=== PATIENT | male | born 1995 | race Caucasian/White ===

== ENCOUNTER 2018-03-10 16:08 | Emergency (ER) | payer BC, OTHER ==
[2018-03-10] MEDS ORDERED: PROPARACAINE 0.5% OPHTH DROPS 15 ML BTL LEFT EYE STA (17:08)
--- NOTE | 2018-03-10 18:16 | ED ---
Eye Problem HPI - General Chief complaint: Eye Problems Stated complaint: FB eye Time Seen by Provider: 03/10/18 17:04 Source: patient, RN notes reviewed Mode of arrival: ambulatory Limitations: no limitations - History of Present Illness Initial comments: This is a 22-year-old male with no past medical history who presents today for chief complaint of there is something in my left eye times one day. Patient states that yesterday afternoon he was using a metal riveting machine operator while working on his car, he had left his safety glasses inside of the car did not use them. Patient states he felt something go into his left eye. He tried to rinse out the object. He noticed pain in the right eye but continue to use the metal riveting machine operator. Today when he continued to have left eye redness and pain he decided to present to the emergency department. Patient admits to photophobia, lacrimation, injection and pain of the left eye. Patient denies symptoms in the right eye. Patient denies headache, nausea, vomiting, eye drainage, recent fever, chills, recent STD, surrounding erythema of the left eye, diplopia, visual changes, shortness of breath, chest pain, back pain, abdominal pain, nausea or vomiting, numbness or tingling, dysuria or hematuria, constipation or diarrhea, or any other complaints. Tetanus up-to-date within the last 5 years. Upon presentation emergency Department patient was 20/20 in the right eye and 20 /15 in the left eye. IOP's 10 bilaterally. - Related Data Previous Rx's Medication Instructions Recorded Tobra-Dexamet 0.3-0.1% Eye Lynda 1 drops LEFT EYE Q4H 3 Days #1 03/10/18 [Tobradex Ophth Susp] bottle traMADol HCl [Ultram] 50 mg PO Q6HR PRN 3 Days #12 tab 03/10/18 Allergies Allergy/AdvReac Type Severity Reaction Status Date / Time No Known Allergies Allergy Verified 03/10/18 17:08 Review of Systems ROS Statement: Those systems with pertinent positive or pertinent negative responses have been documented in the HPI. ROS Other: All systems not noted in ROS Statement are negative. Constitutional: Denies: fever, chills Eyes: Reports: as per HPI, eye pain, other (photophobia). Denies: eye discharge , vision change ENT: Denies: ear pain, throat pain Respiratory: Denies: cough, dyspnea Cardiovascular: Denies: chest pain, palpitations Endocrine: Denies: fatigue Gastrointestinal: Denies: abdominal pain, nausea, vomiting, diarrhea, constipation Genitourinary: Denies: urgency, dysuria, frequency Musculoskeletal: Denies: back pain Skin: Denies: rash, lesions Past Medical History Past Medical History: No Reported History History of Any Multi-Drug Resistant Organisms: None Reported Past Surgical History: No Surgical Hx Reported Past Psychological History: No Psychological Hx Reported Smoking Status: Current every day smoker Past Alcohol Use History: None Reported Past Drug Use History: None Reported General Exam - General Exam Comments Initial Comments: General: The patient is awake and alert, in no distress, and does not appear acutely ill. Eye: OD 20/20 OS 20/15 OU 20/15. Pupils are equal, round and reactive to light , no evidence of APD. Extra-ocular movements are intact without pain with movement. VF intact to confrontation in all 4 field b/l. No nystagmus. There is +1 injection of the conjunctiva of the left eye. Normal left conjunctiva. Claer corena and lens. No signs of icterus. There is visible FB to the 4oclock region of the left eye. Upon florescene examination there is uptake within the visible FB. No other areas of uptake. Examination of the upper lid externally and internaly reveals no FB. IOP 10 b/l. Ears, nose, mouth and throat: There are moist mucous membranes and no oral lesions. Neck: The neck is supple, there is no tenderness or JVD. Cardiovascular: There is a regular rate and rhythm. No murmur, rub or gallop is appreciated. Respiratory: Lungs are clear to auscultation, respirations are non-labored, breath sounds are equal. No wheezes, stridor, rales, or rhonchi.. Neurological: A&O x 3. CN II-XII intact, There are no obvious motor or sensory deficits. Coordination appears grossly intact. Speech is normal. Skin: Skin is warm and dry and no rashes or lesions are noted. Psychiatric: Cooperative, appropriate mood & affect, normal judgment. Limitations: no limitations Course Vital Signs 03/10/18 03/10/18 16:25 19:26 Temperature 98.6 F 98.1 F Pulse Rate 81 63 Respiratory 18 16 Rate Blood Pressure 124/57 132/67 O2 Sat by Pulse 100 100 Oximetry Medical Decision Making - Medical Decision Making This is a 22-year-old male with no past medical history who presents today for chief complaint of there is something in my left eye times one day. Patient states that yesterday afternoon he was using a metal riveting machine operator while working on his car, he had left his safety glasses inside of the car did not use them. Patient states he felt something go into his left eye. He tried to rinse out the object. He noticed pain in the right eye but continue to use the metal riveting machine operator. Today when he continued to have left eye redness and pain he decided to present to the emergency department. Patient admits to photophobia, lacrimation, injection and pain of the left eye. Patient denies symptoms in the right eye. Patient denies headache, nausea, vomiting, eye drainage, recent fever, chills, recent STD, surrounding erythema of the left eye, diplopia, visual changes, shortness of breath, chest pain, back pain, abdominal pain, nausea or vomiting, numbness or tingling, dysuria or hematuria, constipation or diarrhea, or any other complaints. Tetanus up-to-date within the last 5 years. Upon presentation emergency Department patient was 20/20 in the right eye and 20 /15 in the left eye. IOP's 10 bilaterally. 2 drops of proparacaine were administered to the left eye. Slit lamp examination using fluorescein revealed uptake at the 4:00 region of the left eye, there is an obvious rust ring. The foreign body is present upon examination with and without slit lamp. Attempt to remove the foreign body with an 18-gauge needle, was unsuccessful. Given the mechanism of the injury and possible for deeper penetration of the foreign body an x-ray PA and lateral of the orbits were obtained revealing no evidence of ocular FB. Rust ring was removed by Dr. Adams using Auger brush. There was minimal remaining rust. Pt to f/u with ophthalmology in 2-3 days. Pt d/c with tramadol rx for pain and needed as recommended by Dr. Adams and Tobrex drops for 3 days. Plan discussed with Dr. Adams and patient. Pt discharged in stable condition. Disposition Clinical Impression: Foreign body of left eye Disposition: HOME SELF-CARE Condition: Good Instructions: Eye Lubricant (Into the eye), Eye Foreign Body (ED) Additional Instructions: Please use medication as discussed. Please follow-up with eye doctor in the next 2-3 days. Please return to emergency room if the symptoms increase or worsen or for any other concerns. Prescriptions: Tobra-Dexamet 0.3-0.1% Eye Lynda [Tobradex Ophth Susp] 1 drops LEFT EYE Q4H 3 Days #1 bottle traMADol HCl [Ultram] 50 mg PO Q6HR PRN 3 Days #12 tab PRN Reason: Pain Is patient prescribed a controlled substance at d/c from ED?: Yes When asked, does pt state using other controlled substances?: No If prescribed controlled substance>3 days was MAPS reviewed?: Prescribed <3 Days If opioid is for acute pain is fill amount 7 days or less?: Yes If Rx opioid, was Start Talking consent form obtained?: Yes Referrals: Felipe Regalado MD [Primary Care Provider] - 1-2 days Dylon Tsai MD [STAFF PHYSICIAN] - 1-2 days Time of Disposition: 19:14
--- NOTE | 2018-03-10 18:57 | XR ---
PROCEDURE: XR orbit detect foreign body 3 views DATE AND TIME: 03/10/2018 6:17 PM REFERRING PHYSICIAN: Jolly Wadsworth CLINICAL INDICATION: PHH, Pain TECHNIQUE: Department protocol. COMPARISON: None FINDINGS: There is no fracture or malalignment. The soft tissues are unremarkable. IMPRESSION: NO ACUTE PROCESS.
[2018-03-10 19:27] VITALS: BP 132/67; PULSE 63; RESP 16; TEMP 98.1
== END 2018-03-10 19:25 | disposition home or self-care (01) ==
LOC: EC 16:08
DX: T15.02XA Foreign body in cornea, left eye, initial encounter (principal); F17.200 Nicotine dependence, unspecified, uncomplicated
CPT/HCPCS: 65222; 70030; 99283

== ENCOUNTER 2019-05-14 15:26 | Emergency (ER) | payer BC ==
[2019-05-14 15:32] VITALS: TEMP 98.2
[2019-05-14] MEDS ORDERED: ceFAZolin 1,000 MG VIAL (IM USE) IM STA (16:08)
[2019-05-14] MEDS ORDERED: ONDANSETRON 4 MG/2 ML VIAL IVP STA (16:09)
[2019-05-14] MEDS ORDERED: DIPH,PERTUS(ACELL)TETVAC-LF 0.5 ML VIAL IM ONE (16:09)
[2019-05-14] MEDS ORDERED: HYDROmorphone 1 MG/ML 1 ML SYRINGE IVP STA (16:09)
[2019-05-14 17:04] VITALS: BP 125/57
--- NOTE | 2019-05-14 17:07 | XR ---
EXAMINATION TYPE: XR foot complete RT DATE OF EXAM: 05/14/2019 COMPARISON: NONE HISTORY: Foot pain TECHNIQUE: 3 views FINDINGS: There are transverse fractures of the head of the third and fourth and fifth metatarsals. T here is no dislocation. There is mild soft tissue swelling of the forefoot. IMPRESSION: Multiple nondisplaced metatarsal head fractures.
--- NOTE | 2019-05-14 17:09 | XR ---
EXAMINATION TYPE: XR ankle complete RT DATE OF EXAM: 05/14/2019 COMPARISON: NONE HISTORY: Foot pain ankle pain TECHNIQUE: 3 views FINDINGS: Ankle mortise is anatomic. I see no fracture nor dislocation. Joint spaces are fairly sami l. IMPRESSION: Negative right ankle exam. Multiple metatarsal head fractures noted.
[2019-05-14] MEDS ORDERED: KETOROLAC 30 MG/ML 1 ML VIAL IVP STA (17:56)
[2019-05-14 17:58] VITALS: PULSE 68; RESP 18
[2019-05-14] MEDS ORDERED: LIDOCAINE 1% INJ 10MG/ML (20 ML MDV) SQ ONE (18:36)
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
== END 2019-05-14 19:42 | disposition home or self-care (01) ==
LOC: EC 15:26
DX: S92.334A Nondisplaced fracture of third metatarsal bone, right foot, initial encounter for closed fracture (principal); S92.344A Nondisplaced fracture of fourth metatarsal bone, right foot, initial encounter for closed fracture; S92.354A Nondisplaced fracture of fifth metatarsal bone, right foot, initial encounter for closed fracture; S91.011A Laceration without foreign body, right ankle, initial encounter; F17.200 Nicotine dependence, unspecified, uncomplicated; Z23 Encounter for immunization; V86.56XA Driver of dirt bike or motor/cross bike injured in nontraffic accident, initial encounter
CPT/HCPCS: 73610; 73630; 90715; 99284; 90471; 96374; 96375 ×2; 96372 ×2; J2405; J0690; J2001; J1885; J1170

== ENCOUNTER 2021-01-20 16:03 | Emergency (ER) | payer BC, OTHER ==
[2021-01-20 16:11] VITALS: BP 146/81; PULSE 116; RESP 18; TEMP 98.7
--- NOTE | 2021-01-20 16:24 | ED ---
Psych HPI - General Source: patient, police Mode of arrival: ambulatory <Francoise Murray - Last Filed: 01/20/21 16:23> <Armen Norris - Last Filed: 01/21/21 00:28> - General Chief Complaint: Psychiatric Symptoms Stated Complaint: EPS eval Time Seen by Provider: 01/20/21 16:17 - History of Present Illness Initial Comments: Cristiano is a 25-year-old male with history of polysubstance abuse who is brought to the ER today with a pickup order for psychiatric evaluation. Patient states he supposed to be on psychiatric medications and has not. He states he is currently battling to get off of illicit drugs including meth his last use was 3-4 days ago. Patient states that he is feeling depressed he is under a lot of stress over custody simons over his 5-month-old daughter. (Francoise Murray) - Related Data Home Medications Medication Instructions Recorded Confirmed No Known Home Medications 01/20/21 01/20/21 Allergies Allergy/AdvReac Type Severity Reaction Status Date / Time No Known Allergies Allergy Verified 01/20/21 17:06 Review of Systems ROS Other: All systems not noted in ROS Statement are negative. <Francoise Murray - Last Filed: 01/20/21 16:23> ROS Other: All systems not noted in ROS Statement are negative. <Armen Norris - Last Filed: 01/21/21 00:28> ROS Statement: Those systems with pertinent positive or pertinent negative responses have been documented in the HPI. Past Medical History Past Medical History: No Reported History History of Any Multi-Drug Resistant Organisms: None Reported Past Surgical History: No Surgical Hx Reported Past Psychological History: No Psychological Hx Reported Smoking Status: Current every day smoker Past Alcohol Use History: None Reported Past Drug Use History: Marijuana, Methamphetamine <Francoise Murray - Last Filed: 01/20/21 16:23> General Exam Limitations: no limitations <Francoise Murray - Last Filed: 01/20/21 16:23> - General Exam Comments Initial Comments: Physical Exam GENERAL: Patient is well-developed and well-nourished. Patient is nontoxic and well-hydrated and is in no distress. Poor personal hygiene HENT: Normocephalic, Atraumatic. EYES: PERRL, EOMI PULMONARY: Unlabored respirations. CARDIOVASCULAR: Tachycardic Warm and well perfused extremities ABDOMEN: Non-distended SKIN: Scars on bilateral ankles : Deferred NEUROLOGIC: Alert and oriented Normal speech Normal gait MUSCULOSKELETAL: Moving all extremities with no apparent injury PSYCHIATRIC: No SI/HI (Francoise Murray) Course Vital Signs 01/20/21 16:06 Temperature 98.7 F Pulse Rate 116 H Respiratory 18 Rate Blood Pressure 146/81 O2 Sat by Pulse 99 Oximetry Medical Decision Making - Lab Data Result diagrams: 01/20/21 16:27 01/20/21 16:27 <JrArmen - Last Filed: 01/21/21 00:28> - Lab Data Lab Results 01/20/21 01/20/21 01/20/21 Range/Units 16:27 16:27 17:41 WBC 10.4 (3.8-10.6) k/uL RBC 5.45 (4.30-5.90) m/uL Hgb 15.7 (13.0-17.5) gm/dL Hct 47.3 (39.0-53.0) % MCV 86.8 (80.0-100.0) fL MCH 28.9 (25.0-35.0) pg MCHC 33.3 (31.0-37.0) g/dL RDW 13.5 (11.5-15.5) % Plt Count 335 (150-450) k/uL MPV 6.3 Neutrophils % 68 % Lymphocytes % 24 % Monocytes % 5 % Eosinophils % 1 % Basophils % 1 % Neutrophils # 7.0 (1.3-7.7) k/uL Lymphocytes # 2.5 (1.0-4.8) k/uL Monocytes # 0.5 (0-1.0) k/uL Eosinophils # 0.2 (0-0.7) k/uL Basophils # 0.1 (0-0.2) k/uL Sodium 140 (137-145) mmol/L Potassium 4.3 (3.5-5.1) mmol/L Chloride 103 (98-107) mmol/L Carbon Dioxide 28 (22-30) mmol/L Anion Gap 9 mmol/L BUN 14 (9-20) mg/dL Creatinine 0.63 L (0.66-1.25) mg/dL Est GFR (CKD-EPI)AfAm >90 (>60 ml/min/1.73 sqM) Est GFR (CKD-EPI)NonAf >90 (>60 ml/min/1.73 sqM) Glucose 78 (74-99) mg/dL Calcium 10.0 (8.4-10.2) mg/dL Total Bilirubin 0.5 (0.2-1.3) mg/dL AST 23 (17-59) U/L ALT 26 (4-49) U/L Alkaline Phosphatase 39 (38-126) U/L Total Protein 7.4 (6.3-8.2) g/dL Albumin 4.7 (3.5-5.0) g/dL Salicylates <1.0 mg/dL Urine Opiates Screen Not Detected (NotDetected) Ur Oxycodone Screen Not Detected (NotDetected) Urine Methadone Screen Not Detected (NotDetected) Ur Propoxyphene Screen Not Detected (NotDetected) Acetaminophen <10.0 ug/mL Ur Barbiturates Screen Not Detected (NotDetected) U Tricyclic Antidepress Not Detected (NotDetected) Ur Phencyclidine Scrn Not Detected (NotDetected) Ur Amphetamines Screen Detected H (NotDetected) U Methamphetamines Scrn Not Detected (NotDetected) U Benzodiazepines Scrn Not Detected (NotDetected) Urine Cocaine Screen Not Detected (NotDetected) U Marijuana (THC) Screen Detected H (NotDetected) Serum Alcohol <10 mg/dL Disposition <Francoise Murray - Last Filed: 01/20/21 16:23> Is patient prescribed a controlled substance at d/c from ED?: No <Armen Norris - Last Filed: 01/21/21 00:28> Clinical Impression: Mood disorder Disposition: HOME SELF-CARE Condition: Good Instructions (If sedation given, give patient instructions): Mood Disorders (ED) Referrals: Felipe Regalado MD [Primary Care Provider] - 1-2 days
[2021-01-20 16:34] LABS: Basophils # (A) 0.1 k/uL (0-0.2); Basophils % (A) 1 %; Eosinophils # (A) 0.2 k/uL (0-0.7); Eosinophils % (A) 1 %; HCT 47.3 % (39.0-53.0); HGB 15.7 gm/dL (13.0-17.5); Lymphocytes # (A) 2.5 k/uL (1.0-4.8); Lymphocytes % (A) 24 %; MCH 28.9 pg (25.0-35.0); MCHC 33.3 g/dL (31.0-37.0); MCV 86.8 fL (80.0-100.0); Mean Platelet Volume 6.3; Monocytes # (A) 0.5 k/uL (0-1.0); Monocytes % (A) 5 %; Neutrophils % (A) 68 %; Platelet Count 335 k/uL (150-450); RBC 5.45 m/uL (4.30-5.90); RDW 13.5 % (11.5-15.5); WBC 10.4 k/uL (3.8-10.6)
[2021-01-20 16:46] LABS: ALT 26 U/L (4-49); AST 23 U/L (17-59); Acetaminophen <10.0 ug/mL; African American GFR (CKD) >90 (>60 ml/min/1.73 sqM); Albumin 4.7 g/dL (3.5-5.0); Alcohol <10 mg/dL; Alkaline Phosphatase 39 U/L (38-126); Anion Gap 9 mmol/L; Blood Urea Nitrogen 14 mg/dL (9-20); Carbon Dioxide 28 mmol/L (22-30); Chloride 103 mmol/L (98-107); Glucose 78 mg/dL (74-99); Non-African American GFR(CKD) >90 (>60 ml/min/1.73 sqM); Potassium 4.3 mmol/L (3.5-5.1); Salicylate <1.0 mg/dL; Sodium 140 mmol/L (137-145); Total Bilirubin 0.5 mg/dL (0.2-1.3); Total Protein 7.4 g/dL (6.3-8.2)
[2021-01-20 17:58] LABS: Amphetamine Screen,Urine Detected (NotDetected); Barbiturate Screen,Urine Not Detected (NotDetected); Benzodiazepines Screen,Urine Not Detected (NotDetected); Cocaine Screen,Urine Not Detected (NotDetected); Methadone Screen, Urine Not Detected (NotDetected); Opiate Screen,Urine Not Detected (NotDetected); Oxycodone Screen, Urine Not Detected (NotDetected); Phencyclidine Screen,Urine Not Detected (NotDetected); Tricyclic Antidepressant,Urine Not Detected (NotDetected); Urn Cannabinoid Scrn Detected (NotDetected)
== END 2021-01-21 00:34 | disposition home or self-care (01) ==
LOC: EC 16:33
DX: F39 Unspecified mood [affective] disorder (principal); F17.200 Nicotine dependence, unspecified, uncomplicated
CPT/HCPCS: 36415; 80053; 80143; 80179; 80306; 80320; 82075; 85025

== ENCOUNTER 2021-01-26 00:19 | Emergency (ER) | payer BC, OTHER ==
[2021-01-26 00:25] VITALS: BP 135/69; PULSE 90; RESP 16; TEMP 97.9
--- NOTE | 2021-01-26 00:32 | ED ---
Psych HPI - General Chief Complaint: Psychiatric Symptoms Stated Complaint: Mental Health Time Seen by Provider: 01/26/21 00:28 Source: patient, police Mode of arrival: ambulatory - Related Data Home Medications Medication Instructions Recorded Confirmed No Known Home Medications 01/20/21 01/20/21 Allergies Allergy/AdvReac Type Severity Reaction Status Date / Time No Known Allergies Allergy Verified 01/20/21 17:06 Review of Systems ROS Statement: Those systems with pertinent positive or pertinent negative responses have been documented in the HPI. ROS Other: All systems not noted in ROS Statement are negative. Past Medical History Past Medical History: No Reported History History of Any Multi-Drug Resistant Organisms: None Reported Past Surgical History: Orthopedic Surgery Additional Past Surgical History / Comment(s): left ankle , right foot Past Psychological History: No Psychological Hx Reported Smoking Status: Current every day smoker Past Alcohol Use History: None Reported Past Drug Use History: Marijuana, Methamphetamine General Exam Limitations: no limitations Course Vital Signs 01/26/21 00:22 Temperature 97.9 F Pulse Rate 90 Respiratory 16 Rate Blood Pressure 135/69 O2 Sat by Pulse 100 Oximetry Disposition Clinical Impression: Mood disorder Disposition: HOME SELF-CARE Condition: Fair Instructions (If sedation given, give patient instructions): Mood Disorders (ED) Is patient prescribed a controlled substance at d/c from ED?: No Referrals: Felipe Regalado MD [Primary Care Provider] - 1-2 days
== END 2021-01-26 02:35 | disposition home or self-care (01) ==
LOC: EC 00:19
DX: F39 Unspecified mood [affective] disorder (principal); F17.200 Nicotine dependence, unspecified, uncomplicated; F12.90 Cannabis use, unspecified, uncomplicated; F15.90 Other stimulant use, unspecified, uncomplicated
CPT/HCPCS: 82075; 99284